=== PATIENT | female | born 1955 ===

== ENCOUNTER 2016-09-17 19:55 | Inpatient (IN) | payer OTHER ==
[2016-09-17 20:35] VITALS: BMI 47.7
[2016-09-17] MEDS ORDERED: Albuterol-Ipratrop 3 mg / 0.5 (3 ml) UD IH PRN (22:00)
[2016-09-17] MEDS ORDERED: Insulin Detemir 100 units/ml Vial (Levemir) SC SCH (22:00)
[2016-09-17] MEDS ORDERED: Insulin Lispro (HUMAlog) HIGH Coverage SC SCH (22:15)
[2016-09-17] MEDS ORDERED: metroNIDAZOLE IV 500 mg/100 ml 100 ML IVPB SCH (22:32)
[2016-09-17] MEDS: Insulin Reg-MEDIUM-Coverage SC SCH (22:48)
[2016-09-17] MEDS: Insulin Detemir 100 units/ml Vial (Levemir) SC SCH (23:12)
[2016-09-17] MEDS ORDERED: Albuterol-Ipratrop 3 mg / 0.5 (3 ml) UD IH SCH (23:30)
[2016-09-18] MEDS ORDERED: metroNIDAZOLE IV 500 mg/100 ml 100 ML IVPB SCH (06:00)
[2016-09-18] MEDS: cefTRIAXone 1 gm 100 ML IVPB SCH (06:02)
[2016-09-18] MEDS: Levothyroxine 75 MCG TAB PO SCH (06:09)
[2016-09-18] MEDS: Pantoprazole 40 mg EC Tab PO SCH (06:09)
[2016-09-18] MEDS: Insulin Lispro 1 UNITS/0.01 ML SC SCH ×3 (06:45→17:33)
[2016-09-18] MEDS: Insulin Reg-MEDIUM-Coverage SC SCH ×4 (06:46→22:15)
[2016-09-18] MEDS ORDERED: Levothyroxine 75 MCG TAB PO SCH (07:30)
[2016-09-18] MEDS ORDERED: Albuterol-Ipratrop 3 mg / 0.5 (3 ml) UD IH PRN (07:56)
[2016-09-18 09:17] LABS: ADD MANUAL DIFF? NO
[2016-09-18] MEDS: MethylPREDNISolone 40 mg Vial IVP SCH (09:33)
[2016-09-18 09:42] LABS: ALKALINE PHOSPHATASE 132 U/L (38-133); ALT/SGPT 44 U/L (7-56); AST/SGOT 41 U/L (15-39); BILIRUBIN,TOTAL 0.6 mg/dL (0.2-1.3); BLOOD UREA NITROGEN 13 mg/dL (7-21); CALCIUM 10.5 mg/dL (8.4-10.5); CARBON DIOXIDE 28 mmol/L (21-33); CHLORIDE 101 mmol/L (98-107); GFR AFRICAN-AMERICAN > 60; GLUCOSE,RANDOM 86 mg/dL (70-110); POTASSIUM 4.5 mmol/L (3.6-5.0); SODIUM 138 mmol/L (132-148); TOTAL PROTEIN 6.8 g/dL (5.8-8.3)
[2016-09-18] MEDS ORDERED: cefTRIAXone 1 gm 100 ML IVPB SCH (10:00)
[2016-09-18 10:16] LABS: BASO # 0.02 K/mm3 (0.0-2.0); BASO % 0.2 % (0.0-3.0); EOS % 0.2 % (1.5-5.0); GRAN # 9.07 (1.4-6.5); GRAN % 73.1 % (50.0-68.0); HEMATOCRIT 35.8 % (36.0-48.0); LYMPH # 1.1 (1.2-3.4); LYMPH % 9.1 % (22.0-35.0); MEAN CELL VOLUME 91.6 fL (80.0-105.0); MEAN CORPUSCULAR HEMOGLOBIN 29.2 pg (25.0-35.0); MEAN CORPUSCULAR HGB CONC 31.8 g/dl (31.0-37.0); MONO # 2.2 (0.1-0.6); MONO % 17.4 % (1.0-6.0); PLATELET COUNT 215 10^3/uL (120.0-450.0); RED CELL DISTRIBUTION WIDTH 14.5 % (11.5-14.5); WHITE BLOOD COUNT 12.4 10^3/ul (4.5-11.0)
[2016-09-18] MEDS: Magnesium Oxide 400 mg Tab UD PO SCH ×2 (10:19→17:34)
[2016-09-18] MEDS: Albuterol-Ipratrop 3 mg / 0.5 (3 ml) UD IH SCH ×4 (11:03→23:00)
[2016-09-18] MEDS: Insulin Detemir 100 units/ml Vial (Levemir) SC SCH ×2 (11:31→22:16)
--- NOTE | 2016-09-18 12:21 | PN ---
DATE: 09/18/2016 The patient was seen and examined at bedside. She is receiving aerosol treatment with DuoNeb. At the present time, she is in 40 mg of Solu-Medrol. She is also on Rocephin intravenously. Pt with shortness of breath and some cough noted. PHYSICAL EXAMINATION: HEAD, EARS, NOSE, AND THROAT: Within normal limits. NECK: Supple with no jugular vein distention. CHEST: Symmetrical. HEART: S1, S2. No S3. Regular. LUNGS: Diminished breath sounds at both lung bases. Few scattered rhonchi. No wheezing. EXTREMITIES: No edema. SKIN: No rashes. Dry; intact. She is status post renal transplant. The rest of current situation is described above. Imaging studies were reviewed by me. CT of the abdomen and pelvis, no evidence of significant pathology. She is status post living donor renal transplant. I had an opportunity to evaluate her chest x-ray. This did not reveal any acute pathology. There is no infiltrate, effusions, except for unclear atelectatic opacity in the right lung base. I reviewed her CT scan of abdomen and pelvis which should give us an opportunity to further evaluate the changes at the right lung base. There is no significant infiltrate or effusion at the right base. There is some crowding of the blood vessels at the left lung base, but not enough to call it a pneumonia. There are a few chronic changes at both lung bases. ASSESSMENT: No evidence of acute pneumonia by CT, which I evaluated the right basal abnormality that was present on chest x-ray. Agree with current choice of antibiotics, steroids, and aerosol. We will follow on a p.r.n. basis. The patient was seen by infectious disease regulatory affairs consultant, Dr. Mendoza. He suspected pyelonephritis and severe sepsis. He started her on meropenem. Influenza is also in the differential, so he started Tamiflu and doxycycline as well. The antibiotics will continue to be adjusted and administered by infectious disease service. Clayton Lyman MD cc: [id number] TT: 09/18/2016 12:20:59 Confirmation # [id number] Dictation # [id number] ln MTDD
--- NOTE | 2016-09-18 15:50 | HP ---
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 The patient was admitted to the telemetry negrete for management of UTI with sepsis and a questionable right lower lobe pneumonia. She was started on cefepime and Flagyl with initial improvement in her symptoms and was subsequently ogden sferred to the TCU for completion of a 10-14 day course of antibiotics as per infection disease recom mendations. This morning, the patient states she feels weak and endorses some difficulty breathing a nd also complains of chills and rigors; however, she does state that her diarrhea has improved and th at she is tolerating p.o. intake. PAST MEDICAL HISTORY: As per HPI. PAST SURGICAL HISTORY: As per HPI, also colonic resection for prior diverticulitis, appendectomy and hysterectomy. ALLERGIES: No known drug allergies. MEDICATIONS: Zetia 10 mg p.o. daily, prednisone 5 mg p.o. daily, Synthroid 75 mcg p.o. daily, Proton ix 40 mg p.o. daily, losartan 100 mg p.o. daily, Levemir 50 units SC q.12, Humalog 20 units SC with m eals, CellCept 250 mg p.o. t.i.d., tacrolimus 1 mg p.o. b.i.d., Bactrim DS 1 tab p.o. Tuesday, and Tuesday. FAMILY HISTORY: Noncontributory. SOCIAL HISTORY: The patient denies any toxic habits. REVIEW OF SYSTEMS: A 14 point review of systems is negative except as per HPI. PHYSICAL EXAMINATION: VITAL SIGNS: Temperature 101.8, pulse 75, blood pressure 151/54, respiratory rate 20, oxygen saturat ion 96% on 2 liters nasal cannula. GENERAL: Morbidly obese woman sitting up in her chair in no apparent distress. HEENT: PERRL. EOMI. No scleral icterus, no conjunctival pallor. NECK: No JVD, no bruits. LUNGS: Distant breath sounds with decreased breath sounds at the bases, otherwise clear. CARDIOVASCULAR: Regular rate and rhythm. Normal S1 and S2. ABDOMEN: Obese, normoactive bowel sounds, soft, nontender, nondistended. EXTREMITIES: Trace lower extremity edema bilaterally. NEUROLOGIC: Awake, alert and oriented x 3. No focal motor deficits. LABORATORY DATA: Morning labs are pending. ASSESSMENT: The patient is a 60-year-old woman with multiple medical comorbidities who presented to [facility] for evaluation of a 3-week history of daily diarrhea and who was admitted to [facility] telemetry negrete for continued management of urinary tract infection with sepsis. PLAN: 1. Urinary tract infection with sepsis. Input from Dr. Oakley of infectious disease noted and apprec iated. The patient remains on ceftriaxone 1 gram IV daily. 2. Chronic diarrhea. Consider secondary to Clostridium difficile given the patient's profound leuko cytosis on admission. The patient was previously on Flagyl 500 mg IV q.8 with resolution of her leuk ocytosis and significant improvement in her diarrhea. Will continue to monitor off of Flagyl. 3. Hypertension. Blood pressure controlled. Continue with losartan 100 mg p.o. daily. 4. Hyperlipidemia. Continue with Zetia 10 mg p.o. daily. 5. Hypothyroidism. Continue with Synthroid 75 mcg p.o. daily. 6. Insulin-dependent diabetes mellitus with diabetic neuropathy. Continue with Levemir 50 units SC q.12 hours and Humalog 18 units SC with meals. Continue with medium dose insulin sliding scale. Leobardo l continue to monitor fingersticks before meals and at bedtime and adjust as needed. 7. Questionable right lower lobe pneumonia. Admission chest x-ray demonstrates a minimal patchy inf iltrate to the right lower lobe. Will start DuoNebs and continue with Solu-Medrol 40 mg IV daily. W ill consult Dr. Kirby from pulmonary and critical care medicine. 8. 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 Input from Dr. Doug murphy is noted and appreciated. Continue with CellCept 250 mg p.o. b.i.d. and Tacrolimus 1 mg p.o . b.i.d. 9. Prophylaxis. Continue with Protonix for GI prophylaxis and heparin for DVT prophylaxis. CODE STATUS: Full code. Dane Downing MD cc: [id number] TT: 09/18/2016 15:49:58 dn
--- NOTE | 2016-09-18 15:56 | CON ---
DATE: 09/18/2016 The patient seen in room 304. CHIEF COMPLAINT: Weakness times several days. HISTORY OF PRESENT ILLNESS: This is a 60-year-old female with a history of right kidney transplant a pproximately 7 years ago, history of diverticulitis, had a history of a partial colectomy, history of morbid obesity with a body mass index of 45, diabetes mellitus, hypertension, hypothyroidism and dys lipidemia was brought to the hospital in acute care after an episode of falling and weakness, but no fevers or vomiting. No chest pain, no shortness of breath. The patient had an extensive workup in [facility] acute care side and was now transferred to the transitional care with diagnosis of severe sepsis a nd urinary tract infection, status post renal transplant approximately 7 years ago. Currently the pa solitario was started on antibiotic, which was ceftriaxone and transferred to transitional care. PAST MEDICAL HISTORY: Significant for right kidney transplant 7 years ago, diverticulitis, morbid ob esity with body mass index of 45, hypertension, diabetes, hypothyroidism, dyslipidemia. PAST SURGICAL HISTORY: Significant for partial colectomy. ALLERGIES: The patient has no known allergies. MEDICATIONS: Reviewed. PHYSICAL EXAMINATION: VITAL SIGNS: Temperature is 98, T-max is 101.8. Blood pressure is 151/50, respiratory rate of 22. HEENT: Unremarkable. NECK: Supple. LUNGS: Decreased breath sounds. HEART: S1, S2. ABDOMEN: Soft, nontender, no organomegaly, no rebound. LABORATORY DATA: Reveals a white count of 13,900 and a ____ of 12 and platelets of 204, BUN of 15, c reatinine of 0.6. The patient had a procalcitonin of 2.42. Urinalysis revealed the patient had too numerous to count WBCs, many bacteria. Review of the blood culture is no growth x 3 days. Repeat ur ine cultures no growth, initial urine cultures had E. coli sensitive to ceftriaxone and resistant to Cipro, resistant to Bactrim. ASSESSMENT AND PLAN: A 60-year-old female with severe sepsis with Escherichia coli urinary tract inf ection, history of renal transplant and sensitive to ceftriaxone, currently on ceftriaxone with hist ory of diverticulitis, status post partial colectomy, morbid obesity with body mass index of 45, hype rtension, diabetes, dyslipidemia, hypothyroidism, day #4 of ceftriaxone with a fever. The patient di d have a CAT scan of the abdomen and pelvis. We will repeat blood cultures and urine cultures and ch est x-ray and procalcitonin. We will make further recommendations. Will follow closely with you. Nilson Mendoza MD cc: [id number] TT: 09/18/2016 15:55:30 Confirmation # [id number] Dictation # [id number] jn
[2016-09-19] MEDS ORDERED: Insulin Regular 1 UNITS/0.01 ML ML SC STA ×2 (00:41→01:38)
[2016-09-19] MEDS: Albuterol-Ipratrop 3 mg / 0.5 (3 ml) UD IH SCH ×6 (04:15→23:09)
[2016-09-19] MEDS: cefTRIAXone 1 gm 100 ML IVPB SCH (05:43)
[2016-09-19] MEDS: Pantoprazole 40 mg EC Tab PO SCH (05:43)
[2016-09-19] MEDS: Levothyroxine 75 MCG TAB PO SCH (05:43)
[2016-09-19] MEDS: Insulin Lispro 1 UNITS/0.01 ML SC SCH ×3 (07:21→17:40)
[2016-09-19] MEDS: Insulin Reg-MEDIUM-Coverage SC SCH ×4 (07:21→22:36)
[2016-09-19] MEDS: Magnesium Oxide 400 mg Tab UD PO SCH ×2 (09:06→17:43)
[2016-09-19] MEDS: Insulin Detemir 100 units/ml Vial (Levemir) SC SCH ×2 (09:07→22:28)
[2016-09-19 09:38] LABS: ADD MANUAL DIFF? NO
[2016-09-19 09:49] LABS: ALB/GLOB RATIO 0.9 (1.1-1.8); ALKALINE PHOSPHATASE 146 U/L (38-133); ALT/SGPT 47 U/L (7-56); AST/SGOT 30 U/L (15-39); BILIRUBIN,TOTAL 0.4 mg/dL (0.2-1.3); BLOOD UREA NITROGEN 18 mg/dL (7-21); CALCIUM 10.9 mg/dL (8.4-10.5); CARBON DIOXIDE 29 mmol/L (21-33); CHLORIDE 99 mmol/L (98-107); GFR AFRICAN-AMERICAN > 60; GLUCOSE,RANDOM 266 mg/dL (70-110); POTASSIUM 4.2 mmol/L (3.6-5.0); SODIUM 138 mmol/L (132-148)
[2016-09-19] MEDS: MethylPREDNISolone 40 mg Vial IVP SCH (10:03)
[2016-09-19 11:29] LABS: BASO # 0.02 K/mm3 (0.0-2.0); BASO % 0.2 % (0.0-3.0); EOS % 0.4 % (1.5-5.0); GRAN # 7.76 (1.4-6.5); GRAN % 74.2 % (50.0-68.0); HEMATOCRIT 35.9 % (36.0-48.0); LYMPH # 1.6 (1.2-3.4); LYMPH % 15.3 % (22.0-35.0); MEAN CELL VOLUME 91.1 fL (80.0-105.0); MEAN CORPUSCULAR HEMOGLOBIN 28.7 pg (25.0-35.0); MEAN CORPUSCULAR HGB CONC 31.5 g/dl (31.0-37.0); MEAN PLATELET VOLUME 11.5 fl (7.0-11.0); MONO % 9.9 % (1.0-6.0); PLATELET COUNT 250 10^3/uL (120.0-450.0); RED CELL DISTRIBUTION WIDTH 14.2 % (11.5-14.5); WHITE BLOOD COUNT 10.5 10^3/ul (4.5-11.0)
--- NOTE | 2016-09-19 12:21 | PN ---
DATE: 09/19/2016 PULMONARY PROGRESS NOTE The patient was seen and examined at bedside. She states she feels better. She has less chest pain with cough. However, she is still coughing and bringing up white and yellowish sputum. PHYSICAL EXAMINATION: VITAL SIGNS: Temperature 97.8, pulse 88, respirations 20, pulse oximetry 96% on nasal cannula. Blood pressure is 153/64. HEAD, EARS, NOSE, AND THROAT: Within normal limits. NECK: Supple with no jugular vein distention. CHEST: Symmetrical. HEART: S1, S2. No S3, regular. LUNGS: Few coarse rhonchi. No wheezing. GASTROINTESTINAL: Soft, nontender with no organomegaly. EXTREMITIES: 1+ pedal edema. SKIN: Clear with no skin rashes. NEUROLOGIC: No focal deficits. ASSESSMENT: 1. Sepsis syndrome. 2. To rule out influenza. 3. Possible influenza 4. Urinary tract infection PLAN: Clear chest x-ray except for small atelectatic area at the right lung base. However, on CT scan of abdomen, there is no significant infiltrate or effusion at the right base. There is no evidence of pneumonia. The patient is being treated for both possible influenza and urinary tract infection. Antibiotics and Tamiflu are being administered by Dr. Bowser Clayton Lyman MD cc: [id number] TT: 09/19/2016 12:20:35 Confirmation # [id number] Dictation # [id number] jn MTDD
--- NOTE | 2016-09-19 12:49 | PN ---
DATE: 09/19/2016 SUBJECTIVE: The patient seen and examined at bedside on the TCU. No acute events overnight. She re naga afebrile and hemodynamically stable. This morning, the patient endorses significant improvemen t in her respiratory status since initiation of bronchodilators and IV steroids. She continues to de ny any diarrhea or abdominal pain and overall, she states she feels better. OBJECTIVE: VITAL SIGNS: TM 98.9, TC 97.8, pulse 87, blood pressure 153/64, respiratory rate 20, oxygen saturati on 96% on 2 liters nasal cannula. GENERAL: Morbidly obese woman, sitting up in her chair, in no apparent distress. HEENT: PERRL, EOMI. No scleral icterus, no conjunctival pallor. NECK: No JVD, no bruits. LUNGS: Distant breath sounds with decreased breath sounds at the bases. CARDIOVASCULAR: Regular rate and rhythm. Normal S1 and S2. ABDOMEN: Normoactive bowel sounds, soft, nontender, nondistended. EXTREMITIES: Trace lower extremity edema bilaterally. NEUROLOGIC: Awake, alert and oriented x 3. No focal motor deficits. LABORATORY DATA: Morning labs are pending. ASSESSMENT: The patient is a 60-year-old woman with multiple medical comorbidities who presented to [facility] for evaluation of a 3-week history of malaise and who was admitted to the tele metry negrete for management of urinary tract infection with sepsis and who was subsequently transferred to the TCU for continued IV antibiotics. PLAN: 1. Urinary tract infection with sepsis. Input from Dr. Oakley and Dr. Mendoza of infectious disea se noted and appreciated. The patient remains on ceftriaxone 1 gram IV daily. 2. Chronic diarrhea, resolved. Consider etiology secondary to Clostridium difficile. The patient r eports resolution of her diarrhea status post course of Flagyl. 3. Hypertension. Blood pressure controlled. Continue with losartan 100 mg p.o. daily. 4. Hyperlipidemia. Continue with Zetia 10 mg p.o. daily. 5. Hypothyroidism. Continue with Synthroid 75 mcg p.o. daily. 6. Insulin-dependent diabetes mellitus with diabetic neuropathy. Fingersticks noted to be elevated over the previous 24 hours and this is likely secondary to IV steroid administration. Continue with Levemir 50 units subQ q. 12 hours and Humalog 18 units subQ with meals. Continue with medium dose in sulin sliding scale. We will likely discontinue IV steroids over the following 24 hours given the pa solitario's significant improvement in her respiratory symptoms, which should improve patient's glycemic control. 7. Questionable right lower lobe pneumonia. Input from Dr. Lyman noted and appreciated. Continue w ith bronchodilators and IV steroids. 8. History of living renal transplant, secondary to fibrillary glomerulonephritis. Input from Dr. Laya crockett noted and appreciated. Continue with CellCept 250 mg p.o. b.i.d. and tacrolimus 1 mg p.o. b.i.d. 9. Prophylaxis. Continue with Protonix for gastrointestinal prophylaxis and heparin for deep venous thrombosis prophylaxis. CODE STATUS: Full code. Dane Downing MD cc: [id number] TT: 09/19/2016 12:48:59 Confirmation # [id number] Dictation # [id number] en
--- NOTE | 2016-09-19 19:49 | PN ---
DATE: 09/19/2016 SUBJECTIVE: The patient seen earlier today in room 304. The patient is in bed in no acute distress. The patient's temperature is on a downward trend. This morning, she was comfortable. PHYSICAL EXAMINATION: VITAL SIGNS: Temperature is 97. The last temperature she had was on 09/17. It was at 101.8. Blood pressure is 130/70, respiratory rate of 20. HEENT: Unremarkable. NECK: Supple. LUNGS: Decreased breath sounds. HEART: Normal S1, S2. ABDOMEN: Soft, nontender. LABORATORY DATA: Reveals a white count of 10,000; hemoglobin of 11, platelets of 258. Chemistries r eveal a BUN of 18, creatinine of 0.8. Microbiology is noted and Dr. Dane Downing's note is revie tue. ASSESSMENT AND PLAN: A 60-year-old female with severe sepsis with Escherichia coli urinary tract inf ection, history of renal transplant. The Escherichia coli is sensitive to ceftriaxone. The patient also with a history of diverticulitis, status post partial colectomy, morbid obesity with a body mass index of 45, hypertension, diabetes mellitus, dyslipidemia, hypothyroidism, day #5 of ceftriaxone. We will continue to treat with present therapy. The patient appears to be improving. Review of the orders confirms the patient to be on ceftriaxone. Nilson Mendoza MD cc: [id number] TT: 09/19/2016 19:48:49 Confirmation # [id number] Dictation # [id number] sn
[2016-09-20] MEDS: Albuterol-Ipratrop 3 mg / 0.5 (3 ml) UD IH SCH ×6 (04:53→23:15)
[2016-09-20] MEDS: cefTRIAXone 1 gm 100 ML IVPB SCH (05:12)
[2016-09-20] MEDS: Pantoprazole 40 mg EC Tab PO SCH (05:35)
[2016-09-20] MEDS: Levothyroxine 75 MCG TAB PO SCH (05:35)
[2016-09-20 06:14] LABS: ADD MANUAL DIFF? NO
[2016-09-20] MEDS: Insulin Reg-MEDIUM-Coverage SC SCH ×4 (06:48→22:50)
[2016-09-20 06:49] LABS: ALKALINE PHOSPHATASE 153 U/L (38-133); ALT/SGPT 45 U/L (7-56); AST/SGOT 30 U/L (15-39); BILIRUBIN,TOTAL 0.3 mg/dL (0.2-1.3); BLOOD UREA NITROGEN 26 mg/dL (7-21); CALCIUM 11.4 mg/dL (8.4-10.5); CARBON DIOXIDE 32 mmol/L (21-33); CHLORIDE 94 mmol/L (95-110); GFR AFRICAN-AMERICAN > 60; GLUCOSE,RANDOM 291 mg/dL (70-110); POTASSIUM 4.5 mmol/L (3.6-5.0); SODIUM 137 mmol/L (132-148); TOTAL PROTEIN 7.1 g/dL (5.8-8.3)
[2016-09-20 06:54] LABS: BASO # 0.02 K/mm3 (0.0-2.0); BASO % 0.2 % (0.0-3.0); EOS # 0.1 (0.0-0.7); EOS % 0.5 % (1.5-5.0); GRAN # 9.53 (1.4-6.5); GRAN % 74.6 % (50.0-68.0); HEMATOCRIT 37.2 % (36.0-48.0); LYMPH % 15.7 % (22.0-35.0); MEAN CELL VOLUME 90.7 fL (80.0-105.0); MEAN CORPUSCULAR HEMOGLOBIN 28.5 pg (25.0-35.0); MEAN CORPUSCULAR HGB CONC 31.5 g/dl (31.0-37.0); MONO # 1.2 (0.1-0.6); PLATELET COUNT 305 10^3/uL (120.0-450.0); RED CELL DISTRIBUTION WIDTH 14.1 % (11.5-14.5); WHITE BLOOD COUNT 12.8 10^3/ul (4.5-11.0)
--- NOTE | 2016-09-20 08:41 | PN ---
DATE: 09/20/2016 SUBJECTIVE: The patient appears very comfortable at rest. She is not short of breath. PHYSICAL EXAMINATION: VITAL SIGNS: Temperature is 97.9, pulse 80, respirations 18, blood pressure 151 /76. Oxygen saturation on nasal cannula is 96%. HEENT: Normocephalic, atraumatic. No JVD. CARDIOVASCULAR: Positive S1, S2. No S3. LUNGS: Decreased breath sounds at the bases. Very minimal rhonchi. No wheezing. EXTREMITIES: Positive for mild edema. No cyanosis. No clubbing. Calves are nontender to palpation. GASTROINTESTINAL: Abdomen is soft, nontender, nondistended. Bowel sounds are positive. SKIN: No acute rash. NEUROLOGIC: Limited at the present time. IMPRESSION: 1. Acute bronchitis. 2. Mild bronchospasm. 3. Sepsis syndrome. 4. Urinary tract infection. PLAN: The patient appears very comfortable this morning. She is not short of breath at rest. She states she is feeling much better overall. On physical exam, only minimal bronchospasm is noted. In addition, there is no significant alveolar arterial gradient. I will continue with the current nebulizer treatments and low-dose intravenous steroids for now. I would continue with the antibiotic coverage as per infectious disease. Input by Dr. Mendoza is noted. Temperatures have fully resolved. The patient appears significantly improved overall - compared to the initial status. She is advised to increase her activity as tolerated. I will discuss the above with Dr. Downing. Jermain Kirby MD cc: [phone] TT: 09/20/2016 08:41:14 Confirmation # [id number] Dictation # [id number] bette QUESADA
--- NOTE | 2016-09-20 08:54 | PN ---
DATE: 09/20/2016 SUBJECTIVE: The patient is seen and examined at bedside in the TCU. No acute events overnight. She remains afebrile and hemodynamically stable, and this morning, continues to endorse improvement in h er clinical status. She states she feels well and states her respiratory symptoms are improving, and otherwise offers no complaints. OBJECTIVE: VITAL SIGNS: Temperature 98.4, pulse 80, blood pressure 135/76, respiratory rate 20, oxygen saturati on 96% on 2 liters nasal cannula. GENERAL: Morbidly obese woman lying in bed in no apparent distress. HEENT: PERRL. EOMI. No scleral icterus. No conjunctival pallor. NECK: No JVD, no bruits. LUNGS: Distant breath sounds with decreased breath sounds at the bases. CARDIOVASCULAR: Regular rate and rhythm. Normal S1 and S2. ABDOMEN: Normoactive bowel sounds, soft, nontender, nondistended. EXTREMITIES: Trace lower extremity edema bilaterally. NEUROLOGIC: Awake, alert, and oriented x 3. No focal motor deficits. LABORATORY DATA: WBC 12.8 with 75% neutrophils, hemoglobin 12, hematocrit 37, platelets 305. Chemis try reviewed and unremarkable. ASSESSMENT: The patient is a 60-year-old woman with multiple medical comorbidities who presented to [facility] for evaluation of a 3-week history of malaise and was admitted to the telemetr y negrete for management of urinary tract infection with sepsis, and subsequently, transferred to the ansitional care unit for continued IV antibiotics. PLAN: 1. Urinary tract infection with sepsis. Input from Dr. Oakley and Dr. Mendoza of infectious diseunity hospital is noted and appreciated. The patient remains on ceftriaxone 1 gram IV daily and is scheduled to complete a 10-14 day course. Today is day #6 of antibiotics. 2. Chronic diarrhea, resolved. 3. Hypertension. Blood pressure controlled. Continue with losartan 100 mg p.o. daily. 4. Hyperlipidemia. Continue with Zetia 10 mg p.o. daily. 5. Hypothyroidism. Continue with Synthroid 75 mcg p.o. daily. 6. Insulin-dependent diabetes mellitus with diabetic neuropathy. Fingersticks are noted to be eleva guerita, which is likely secondary to steroid administration. We will discontinue IV steroids. Continue with Levemir 50 units subcutaneously q. 12. We will increase Humalog to 20 units subcutaneously q. a.c. Continue to monitor fingersticks and adjust insulin regimen as needed. 7. Questionable right lower lobe pneumonia. Input from Dr. Lyman noted and appreciated. Continue w ith bronchodilators. As above, we will discontinue IV steroids. 8. 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 Input from Dr. Doug murphy is noted and appreciated. Continue with CellCept 250 mg p.o. b.i.d. and tacrolimus 1 mg p.o . b.i.d. 9. Prophylaxis. Continue Protonix for GI prophylaxis and heparin for DVT prophylaxis. CODE STATUS: Full code. Dane Downing MD cc: [id number] TT: 09/20/2016 08:54:28 Confirmation # [id number] Dictation # [id number] jn
[2016-09-20] MEDS: Magnesium Oxide 400 mg Tab UD PO SCH ×2 (10:53→18:29)
[2016-09-20] MEDS: Insulin Detemir 100 units/ml Vial (Levemir) SC SCH ×2 (10:55→22:51)
[2016-09-20] MEDS: Insulin Lispro 1 UNITS/0.01 ML SC SCH ×2 (12:30→18:32)
--- NOTE | 2016-09-20 16:34 | CP.PCM.PN ---
Subjective - Date & Time of Evaluation Date of Evaluation: 09/20/16 Time of Evaluation: 11:35 - Subjective Subjective: Comfortable in bed, not in distress, no fevers. Objective - Vital Signs/Intake and Output Vital Signs (last 24 hours): Temp Pulse Resp BP Pulse Ox 97.9 F 80 16 151/76 H 96 09/19/16 14:00 09/19/16 14:00 09/19/16 14:00 09/19/16 14:00 09/19/16 10:00 - Medications Medications: Current Medications Acetaminophen (Tylenol 325mg Tab) 650 mg PO Q4H PRN PRN Reason: Fever >100.4 F Last Admin: 09/18/16 14:25 Dose: 650 mg Albuterol/Ipratropium (Duoneb 3 Mg/0.5 Mg (3 Ml) Ud) 3 ml IH Q2H PRN PRN Reason: Shortness of Breath Albuterol/Ipratropium (Duoneb 3 Mg/0.5 Mg (3 Ml) Ud) 3 ml IH [id number] [facility] Last Admin: 09/20/16 07:13 Dose: 3 ml Ezetimibe (Zetia) 10 mg PO DAILY [facility] Last Admin: 09/19/16 09:07 Dose: 10 mg Heparin Sodium (Porcine) (Heparin) 5,000 units SC Q8 [facility] PRN Reason: Protocol Last Admin: 09/20/16 05:09 Dose: 5,000 units Ceftriaxone Sodium (Rocephin 1 Gram Ivpb) 100 mls @ 100 mls/hr IVPB 0600 [facility] PRN Reason: Protocol Stop: 09/25/16 06:01 Last Admin: 09/20/16 05:12 Dose: 100 mls/hr Insulin Detemir (Levemir) 50 unit SC Q12 [facility] Last Admin: 09/19/16 22:28 Dose: 50 unit Insulin Human Lispro (Humalog) 20 units SC AC TRIPP Insulin Human Regular (Humulin R Med) 0 units SC ACHS [facility] PRN Reason: Protocol Last Admin: 09/20/16 06:48 Dose: 5 units Levothyroxine Sodium (Synthroid) 75 mcg PO 0630 [facility] Last Admin: 09/20/16 05:35 Dose: 75 mcg Losartan Potassium (Cozaar) 100 mg PO DAILY [facility] Last Admin: 09/20/16 08:00 Dose: 100 mg Magnesium Oxide (Mag-Ox) 400 mg PO BID [facility] Last Admin: 09/19/16 17:43 Dose: 400 mg Mycophenolate Mofetil (Cellcept Cap) 250 mg PO BID [facility] Last Admin: 09/19/16 17:33 Dose: 250 mg Ondansetron HCl (Zofran Inj) 4 mg IVP Q4H PRN PRN Reason: Nausea/Vomiting Pantoprazole Sodium (Protonix Ec Tab) 40 mg PO 0630 [facility] Last Admin: 09/20/16 05:35 Dose: 40 mg Tacrolimus (Prograf Cap) 1 mg PO Q12 [facility] Last Admin: 09/19/16 21:21 Dose: 1 mg Zolpidem Tartrate (Ambien) 5 mg PO HS PRN; Protocol PRN Reason: Insomnia Last Admin: 09/19/16 22:36 Dose: 5 mg - Labs Labs: 09/20/16 06:00 09/20/16 06:00 - Constitutional Appears: Non-toxic, No Acute Distress - Head Exam Head Exam: NORMAL INSPECTION - Respiratory Exam Respiratory Exam: Decreased Breath Sounds - Cardiovascular Exam Cardiovascular Exam: +S1, +S2 - GI/Abdominal Exam GI & Abdominal Exam: Soft. absent: Tenderness Assessment and Plan - Assessment and Plan (Free Text) Plan: Assessment severe sepsis secondary to upper urinary tract infection in this patient S/P right renal transplant presenting with generalized weakness and syncopal episodes, clinically improving, growing E. coli resistant to Cipro and Bactrim, sensitive to Rocephin right kidney transplant (about 7 years ago) history of diverticulitis S/P partial colectomy morbid obesity with BMI 45 HTN DM dyslipidemia hypothyroidism Plan continue Rocephin (total day 6 of antibiotics) - would recommend 10-14 days of antibiotics Will continue to follow clinically
[2016-09-21] MEDS: Albuterol-Ipratrop 3 mg / 0.5 (3 ml) UD IH SCH ×5 (04:19→19:53)
[2016-09-21] MEDS: Levothyroxine 75 MCG TAB PO SCH (06:07)
[2016-09-21] MEDS: Pantoprazole 40 mg EC Tab PO SCH (06:08)
[2016-09-21] MEDS: cefTRIAXone 1 gm 100 ML IVPB SCH (06:08)
[2016-09-21] MEDS: Insulin Lispro 1 UNITS/0.01 ML SC SCH ×3 (06:32→17:44)
[2016-09-21] MEDS: Insulin Reg-MEDIUM-Coverage SC SCH ×4 (06:33→21:36)
[2016-09-21 09:41] LABS: ADD MANUAL DIFF? NO
[2016-09-21 09:45] LABS: BASO # 0.09 K/mm3 (0.0-2.0); BASO % 0.7 % (0.0-3.0); EOS # 0.2 (0.0-0.7); EOS % 1.5 % (1.5-5.0); GRAN # 9.35 (1.4-6.5); GRAN % 70.7 % (50.0-68.0); HEMATOCRIT 43.9 % (36.0-48.0); LYMPH # 2.3 (1.2-3.4); LYMPH % 17.6 % (22.0-35.0); MEAN CELL VOLUME 90.3 fL (80.0-105.0); MEAN CORPUSCULAR HEMOGLOBIN 29.2 pg (25.0-35.0); MEAN CORPUSCULAR HGB CONC 32.3 g/dl (31.0-37.0); MONO # 1.3 (0.1-0.6); MONO % 9.5 % (1.0-6.0); PLATELET COUNT 385 10^3/uL (120.0-450.0); RED CELL DISTRIBUTION WIDTH 14.3 % (11.5-14.5); WHITE BLOOD COUNT 13.2 10^3/ul (4.5-11.0)
[2016-09-21 09:52] LABS: ALKALINE PHOSPHATASE 167 U/L (38-133); ALT/SGPT 59 U/L (7-56); AST/SGOT 43 U/L (15-39); BILIRUBIN,TOTAL 0.4 mg/dL (0.2-1.3); BLOOD UREA NITROGEN 24 mg/dL (7-21); CALCIUM 11.3 mg/dL (8.4-10.5); CARBON DIOXIDE 33 mmol/L (21-33); CHLORIDE 92 mmol/L (95-110); GFR AFRICAN-AMERICAN > 60; GLUCOSE,RANDOM 266 mg/dL (70-110); SODIUM 135 mmol/L (132-148); TOTAL PROTEIN 7.7 g/dL (5.8-8.3)
[2016-09-21] MEDS: Magnesium Oxide 400 mg Tab UD PO SCH ×2 (10:20→17:48)
[2016-09-21] MEDS: Insulin Detemir 100 units/ml Vial (Levemir) SC SCH ×2 (10:29→21:46)
--- NOTE | 2016-09-21 10:29 | RAD ---
HISTORY: SOB, cough COMPARISON: 09/14/2016 FINDINGS: LUNGS: No active pulmonary disease. PLEURA: No significant pleural effusion identified, no pneumothorax apparent. CARDIOVASCULAR: Normal. OSSEOUS STRUCTURES: No significant abnormalities. VISUALIZED UPPER ABDOMEN: Normal. OTHER FINDINGS: None. IMPRESSION: No active disease.
--- NOTE | 2016-09-21 10:39 | PN ---
DATE: 09/20/2016 SUBJECTIVE: The patient was seen in the transitional care unit. She is complaining of a cough. She is quite edematous as well. She does not appear to be in any distress. There was no chest pain or shortness of breath. She reports that her dysuria has improved. She has no abdominal pain nor any d ysuria. OBJECTIVE: VITAL SIGNS: Blood pressure is 134/68, heart rate is 72, oral temperature is 98.5, respiratory rate is 18, oxygen saturation 96%. I's and O's are not strictly documented. The remainder of the exam is as follows. HEENT: The patient was normocephalic and atraumatic without any sinus tenderness. NECK: Supple with a full range of motion. Trachea midline and freely movable. Thyroid was nontende r nor was it enlarged. There was no jugular venous distention. Conjunctivae were neither pale nor i cteric. CHEST: Lungs sher had some faint rales at both bases. There was no wheezing or rhonchi. Diaphrag matic excursion as well as airflow through both lung sher was bilaterally symmetrical. CARDIAC: Regular rate and rhythm without any rubs or gallops. There were no heaves and the PMI was not displaced. ABDOMEN: Distended but nontender, without any rebounding, guarding or rigidity. There was no tender ness over her renal allograft. EXTREMITIES: Had 1+ dependent edema. There was no palpable cord. Dawna sign was negative. NEUROLOGIC: The patient was nonfocal. VASCULAR: Had no bruits. SKIN: Intact. GENITOURINARY: No tenderness over her allograft either. There is no suprapubic tenderness on exam. LABORATORY STUDIES: White count is 12.8, H and H is 11.7/37.2 with a platelet count of 305,000. The re are 75% neutrophils, 16% lymphocytes, 9% monocytes. Sodium is 137, potassium is 4.5, chloride 94, bicarbonate 32, BUN/creatinine is 26/0.4, calcium is 11.4, AST/ALT is 30/45, alkaline phosphatase is 153. There is no new microbiology report, nor is there any new imaging to report either. 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 She is currently receiving intravenous antibiotics in the transitional care unit. 1. The patient has been on intravenous fluids and remains volume overloaded. She is "Lasix na?ve" a nd so we will change her furosemide to 20 mg intravenously twice daily with strict in's and out's to ensure that she has a negative fluid balance. Additionally, the patient will have a 2 g sodium restr iction added to her diet. 2. Clinically she is volume overloaded with some rales on exam. I will order a chest x-ray on this p atient as well, but the furosemide should assist her. If she is not in negative fluid balance, then we will titrate the dose up. We can continue losartan for afterload reduction. 3. The patient is hypercalcemic and prior outpatient workup revealed that she has primary hyperparat hyroidism. Ideally, I would place her on 30 mg orally twice daily of Sensipar; however, she has been unable to tolerate it in the past and we will start her on 30 mg daily. 4. Since she is not bacteremic nor toxic in appearance, we will continue her transplant medications at the outpatient dose including CellCept 250 mg orally twice daily, tacrolimus 1 mg orally twice brian ly, prednisone 5 mg daily and Bactrim-DS 1 tablet orally every Tuesday, Tuesday, Tuesday. She does n ot require any stress dose steroids. 5. Infectious disease followup is appreciated. The patient is on day #6 of ceftriaxone and 10 -14 days. The above was discussed with the patient as well as her brother at bedside. Review of systems, past medical history, social history and family history were all reviewed and ther e are no new changes. Doron Casas MD cc: [phone] TT: 09/21/2016 10:38:21 Confirmation # [id number] Dictation # [id number] rn
--- NOTE | 2016-09-21 15:57 | CP.PCM.PN ---
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 Objective - Vital Signs/Intake and Output Vital Signs (last 24 hours): Temp Pulse Resp BP Pulse Ox 98.3 F 82 20 138/74 98 09/21/16 10:00 09/21/16 10:00 09/21/16 10:00 09/21/16 10:27 09/21/16 10:00 - Medications Medications: Current Medications Acetaminophen (Tylenol 325mg Tab) 650 mg PO Q4H PRN PRN Reason: Fever >100.4 F Last Admin: 09/21/16 10:14 Dose: 650 mg Albuterol/Ipratropium (Duoneb 3 Mg/0.5 Mg (3 Ml) Ud) 3 ml IH Q2H PRN PRN Reason: Shortness of Breath Albuterol/Ipratropium (Duoneb 3 Mg/0.5 Mg (3 Ml) Ud) 3 ml IH [id number] [facility] Last Admin: 09/21/16 10:59 Dose: 3 ml Cinacalcet (Sensipar) 30 mg PO DAILY [facility] Last Admin: 09/21/16 10:31 Dose: 30 mg Ezetimibe (Zetia) 10 mg PO DAILY [facility] Last Admin: 09/21/16 10:22 Dose: 10 mg Furosemide (Lasix) 20 mg IVP Q12 [facility] Last Admin: 09/21/16 10:27 Dose: 20 mg Heparin Sodium (Porcine) (Heparin) 5,000 units SC Q8 [facility] PRN Reason: Protocol Last Admin: 09/21/16 14:27 Dose: 5,000 units Ceftriaxone Sodium (Rocephin 1 Gram Ivpb) 100 mls @ 100 mls/hr IVPB 0600 [facility] PRN Reason: Protocol Stop: 09/25/16 06:01 Last Admin: 09/21/16 06:08 Dose: 100 mls/hr Insulin Detemir (Levemir) 50 unit SC Q12 [facility] Last Admin: 09/21/16 10:29 Dose: Not Given Insulin Human Lispro (Humalog) 20 units SC AC [facility] Last Admin: 09/21/16 12:34 Dose: 20 units Insulin Human Regular (Humulin R Med) 0 units SC ACHS [facility] PRN Reason: Protocol Last Admin: 09/21/16 12:35 Dose: 3 units Levothyroxine Sodium (Synthroid) 75 mcg PO 0630 [facility] Last Admin: 09/21/16 06:07 Dose: 75 mcg Losartan Potassium (Cozaar) 100 mg PO DAILY [facility] Last Admin: 09/21/16 10:18 Dose: 100 mg Magnesium Oxide (Mag-Ox) 400 mg PO BID [facility] Last Admin: 09/21/16 10:20 Dose: 400 mg Mycophenolate Mofetil (Cellcept Cap) 250 mg PO BID [facility] Last Admin: 09/21/16 10:18 Dose: 250 mg Ondansetron HCl (Zofran Inj) 4 mg IVP Q4H PRN PRN Reason: Nausea/Vomiting Pantoprazole Sodium (Protonix Ec Tab) 40 mg PO 0630 [facility] Last Admin: 09/21/16 06:08 Dose: 40 mg Prednisone (Prednisone Tab) 5 mg PO DAILY [facility] Last Admin: 09/21/16 10:30 Dose: 5 mg Tacrolimus (Prograf Cap) 1 mg PO Q12 [facility] Last Admin: 09/21/16 10:21 Dose: 1 mg Trimethoprim/Sulfamethoxazole (Bactrim Ds Tab) 1 tab PO MWF [facility] PRN Reason: Protocol Zolpidem Tartrate (Ambien) 5 mg PO HS PRN; Protocol PRN Reason: Insomnia Last Admin: 09/20/16 22:48 Dose: 5 mg - Labs Labs: 09/21/16 09:00 09/21/16 09:00 - Constitutional Appears: Non-toxic, No Acute Distress - Head Exam Head Exam: NORMAL INSPECTION - ENT Exam ENT Exam: Mucous Membranes Moist - Neck Exam Neck Exam: absent: Lymphadenopathy, Meningismus - Respiratory Exam Respiratory Exam: Decreased Breath Sounds - Cardiovascular Exam Cardiovascular Exam: +S1, +S2 - GI/Abdominal Exam GI & Abdominal Exam: Soft. absent: Tenderness Assessment and Plan - Assessment and Plan (Free Text) Plan: Assessment severe sepsis secondary to upper urinary tract infection in this patient S/P right renal transplant presenting with generalized weakness and syncopal episodes, clinically improving, growing E. coli resistant to Cipro and Bactrim, but sensitive to Rocephin right kidney transplant (about 7 years ago) history of diverticulitis S/P partial colectomy morbid obesity with BMI 45 HTN DM dyslipidemia hypothyroidism Plan continue Rocephin (total day 7 of antibiotics) - would recommend 10-14 days of antibiotics Will continue to follow clinically
[2016-09-22] MEDS: Albuterol-Ipratrop 3 mg / 0.5 (3 ml) UD IH SCH ×6 (03:45→20:11)
[2016-09-22] MEDS: Levothyroxine 75 MCG TAB PO SCH (05:40)
[2016-09-22] MEDS: Pantoprazole 40 mg EC Tab PO SCH (05:40)
[2016-09-22] MEDS: cefTRIAXone 1 gm 100 ML IVPB SCH (05:42)
[2016-09-22] MEDS: Insulin Reg-MEDIUM-Coverage SC SCH ×4 (06:50→21:40)
[2016-09-22] MEDS: Insulin Lispro 1 UNITS/0.01 ML SC SCH ×3 (06:52→16:50)
[2016-09-22 07:04] LABS: ADD MANUAL DIFF? NO
[2016-09-22 07:20] LABS: BASO # 0.06 K/mm3 (0.0-2.0); BASO % 0.5 % (0.0-3.0); EOS # 0.1 (0.0-0.7); EOS % 1.1 % (1.5-5.0); GRAN # 8.79 (1.4-6.5); GRAN % 67.7 % (50.0-68.0); HEMATOCRIT 44.3 % (36.0-48.0); LYMPH # 2.8 (1.2-3.4); LYMPH % 21.5 % (22.0-35.0); MEAN CELL VOLUME 91.3 fL (80.0-105.0); MEAN CORPUSCULAR HEMOGLOBIN 29.1 pg (25.0-35.0); MEAN CORPUSCULAR HGB CONC 31.8 g/dl (31.0-37.0); MEAN PLATELET VOLUME 10.8 fl (7.0-11.0); MONO # 1.2 (0.1-0.6); MONO % 9.2 % (1.0-6.0); PLATELET COUNT 417 10^3/uL (120.0-450.0); RED CELL DISTRIBUTION WIDTH 14.4 % (11.5-14.5)
[2016-09-22 07:28] LABS: ALKALINE PHOSPHATASE 143 U/L (38-133); ALT/SGPT 46 U/L (7-56); AST/SGOT 31 U/L (15-39); BILIRUBIN,TOTAL 0.5 mg/dL (0.2-1.3); BLOOD UREA NITROGEN 20 mg/dL (7-21); CALCIUM 10.6 mg/dL (8.4-10.5); CARBON DIOXIDE 32 mmol/L (21-33); CHLORIDE 92 mmol/L (95-110); GFR AFRICAN-AMERICAN > 60; GLUCOSE,RANDOM 275 mg/dL (70-110); POTASSIUM 4.9 mmol/L (3.6-5.0); SODIUM 134 mmol/L (132-148); TOTAL PROTEIN 7.4 g/dL (5.8-8.3)
--- NOTE | 2016-09-22 08:23 | PN ---
DATE: 09/22/2016 SUBJECTIVE: The patient appears comfortable at rest. She is not short of breath. PHYSICAL EXAMINATION: VITAL SIGNS: Temperature is 98.8, pulse 50, respirations 18, blood pressure 120 /51. Oxygen saturation on room air is 96%. HEENT: Normocephalic, atraumatic. No JVD. CARDIOVASCULAR: Positive S1, S2. No S3. LUNGS: Improved breath sounds at the bases. Very minimal/less rhonchi. No wheezing. EXTREMITIES: Positive for mild edema. No cyanosis, no clubbing. Calves are nontender to palpation. GASTROINTESTINAL: Abdomen is soft, nontender, nondistended. Bowel sounds are positive. SKIN: No acute rash. NEUROLOGIC: Limited at the present time. IMPRESSION: 1. Acute bronchitis. 2. Mild bronchospasm. 3. Sepsis syndrome. 4. Urinary tract infection. PLAN: The patient appears very comfortable this morning. She is not short of breath at rest. She states she is feeling much better overall. On physical exam, only minimal bronchospasm is noted. In addition, the oxygen saturation is now 96% on room air. I will continue with the current nebulizer treatments and low-dose oral steroids for now. The patient also remains on antibiotic therapy -- as per infectious disease. Temperatures have resolved. The patient also had a repeat chest x-ray done yesterday. No active disease is noted. Clinical status of the patient is significantly improved -- compared to the initial presentation. She is advised to increase her activity as tolerated. I will discuss the above with Dr. Downing. Jermain Kirby MD cc: [phone] TT: 09/22/2016 08:23:03 Confirmation # [id number] Dictation # [id number] jn SANGITA
--- NOTE | 2016-09-22 08:33 | PN ---
DATE: 09/22/2016 SUBJECTIVE: The patient is seen and examined at bedside on TCU. No acute events overnight. She rem ains afebrile and hemodynamically stable. This morning, the patient states she feels okay except for some cough. which is intermittently productive of clear to yellow sputum, but otherwise denies dyspn ea or chest pain, fevers, chills, or rigors. Overall, she states she feels improved since admission and is looking forward to going home. OBJECTIVE: VITAL SIGNS: Temperature 98.8, pulse 70, blood pressure 120/51, respiratory rate 18, oxygen saturati on 96% on room air. GENERAL: Morbidly obese woman sitting up in her chair in no apparent distress. HEENT: PERRL. EOMI. No scleral icterus, no conjunctival pallor. NECK: No JVD, no bruits. LUNGS: Decreased breath sounds at the bases. CARDIOVASCULAR: Regular rate and rhythm, normal S1 and S2. ABDOMEN: Normoactive bowel sounds, soft, nontender, nondistended. EXTREMITIES: Trace lower extremity edema bilaterally. NEUROLOGIC: Awake, alert, and oriented x 3. No focal motor deficits. LABORATORY DATA: WBC 13 with 67% neutrophils, hemoglobin 14, hematocrit 44, platelets 417. Sodium 1 34, potassium 4.9, chloride 92, bicarb 32, BUN 20, creatinine 0.7, glucose 275. IMAGING STUDIES: Chest x-ray demonstrates no acute pathology. ASSESSMENT: The patient is a 60-year-old woman with multiple medical comorbidities who presents to [facility] for evaluation of a 3-week history of malaise and who was admitted initially to the telemetry negrete for management of UTI with sepsis, and subsequently, transferred to the TCU for c ontinued IV antibiotics. PLAN: 1. Urinary tract infection with sepsis, resolving. Input from Dr. Oakley and Dr. Mendoza of infec tious disease noted and appreciated. The patient remains on ceftriaxone 1 gram IV daily and is sched uled to complete 10-14 day course. Today is day #8 of antibiotics. 2. Insulin-dependent diabetes mellitus with diabetic neuropathy. Fingersticks slightly improved. C ontinue with Levemir 50 units subcutaneously q. 12 and Humalog 20 units subcutaneously q. a.c. Contin ue to monitor fingersticks q. a.c. and at bedtime. Continue with medium dose insulin sliding scale f or coverage. 3. Hypertension. Blood pressure controlled. Continue with losartan 100 mg p.o. daily. 4. Hyperlipidemia. Continue with Zetia 10 mg p.o. daily. 5. Hypothyroidism. Continue with Synthroid 75 mcg p.o. daily. 6. Questionable right lower lobe pneumonia. Repeat chest x-ray demonstrates resolution of prior pat arodlo infiltrate noted on admission chest x-ray. Continue with bronchodilators as needed. Input from Dr. Kirby of pulmonary and critical care medicine noted. 7. 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 Input from Dr. Doug murphy noted and appreciated. Continue with CellCept 250 mg p.o. b.i.d., tacrolimus 1 mg p.o. b.i. d., prednisone 5 mg p.o. daily, and Bactrim 1 tab p.o. Tuesday, Tuesday, and Tuesday. 8. Chronic diarrhea, resolved. 9. Prophylaxis. Continue with Protonix for gastrointestinal prophylaxis and heparin for DVT prophyl axis. CODE STATUS: Full code. Dane Downing MD cc: [phone] TT: 09/22/2016 08:32:10 Confirmation # [id number] Dictation # [id number] jn
[2016-09-22] MEDS: Tmp-Smz 800 mg-160 mg DS Tab PO SCH (10:00)
[2016-09-22] MEDS: Magnesium Oxide 400 mg Tab UD PO SCH ×2 (11:00→17:55)
[2016-09-22] MEDS: Insulin Detemir 100 units/ml Vial (Levemir) SC SCH ×2 (11:00→21:41)
--- NOTE | 2016-09-22 16:33 | CP.PCM.PN ---
Subjective - Date & Time of Evaluation Date of Evaluation: 09/22/16 Time of Evaluation: 11:45 - Subjective Subjective: Patient is afebrile, no diarrhea, generalized weakness is less. Objective - Vital Signs/Intake and Output Vital Signs (last 24 hours): Temp Pulse Resp BP Pulse Ox 98.8 F 50 L 18 120/51 L 96 09/22/16 06:00 09/22/16 06:00 09/22/16 06:00 09/22/16 06:00 09/22/16 06:00 - Medications Medications: Current Medications Acetaminophen (Tylenol 325mg Tab) 650 mg PO Q4H PRN PRN Reason: Fever >100.4 F Last Admin: 09/21/16 10:14 Dose: 650 mg Albuterol/Ipratropium (Duoneb 3 Mg/0.5 Mg (3 Ml) Ud) 3 ml IH Q2H PRN PRN Reason: Shortness of Breath Albuterol/Ipratropium (Duoneb 3 Mg/0.5 Mg (3 Ml) Ud) 3 ml IH [id number] [facility] Last Admin: 09/22/16 08:44 Dose: 3 ml Cinacalcet (Sensipar) 30 mg PO DAILY [facility] Last Admin: 09/21/16 10:31 Dose: 30 mg Ezetimibe (Zetia) 10 mg PO DAILY [facility] Last Admin: 09/21/16 10:22 Dose: 10 mg Furosemide (Lasix) 20 mg IVP Q12 [facility] Last Admin: 09/21/16 21:38 Dose: 20 mg Guaifenesin/Codeine Phosphate (Robitussin W/Codeine) 5 ml PO Q4H PRN PRN Reason: Cough and congestion Heparin Sodium (Porcine) (Heparin) 5,000 units SC Q8 [facility] PRN Reason: Protocol Last Admin: 09/22/16 05:40 Dose: 5,000 units Ceftriaxone Sodium (Rocephin 1 Gram Ivpb) 100 mls @ 100 mls/hr IVPB 0600 [facility] PRN Reason: Protocol Stop: 09/25/16 06:01 Last Admin: 09/22/16 05:42 Dose: 100 mls/hr Insulin Detemir (Levemir) 50 unit SC Q12 [facility] Last Admin: 09/21/16 21:46 Dose: 50 unit Insulin Human Lispro (Humalog) 20 units SC AC [facility] Last Admin: 09/22/16 06:52 Dose: 20 units Insulin Human Regular (Humulin R Med) 0 units SC ACHS [facility] PRN Reason: Protocol Last Admin: 09/22/16 06:50 Dose: 5 units Levothyroxine Sodium (Synthroid) 75 mcg PO 0630 [facility] Last Admin: 09/22/16 05:40 Dose: 75 mcg Losartan Potassium (Cozaar) 100 mg PO DAILY [facility] Last Admin: 09/21/16 10:18 Dose: 100 mg Magnesium Oxide (Mag-Ox) 400 mg PO BID [facility] Last Admin: 09/21/16 17:48 Dose: 400 mg Mycophenolate Mofetil (Cellcept Cap) 250 mg PO BID [facility] Last Admin: 09/21/16 17:41 Dose: 250 mg Ondansetron HCl (Zofran Inj) 4 mg IVP Q4H PRN PRN Reason: Nausea/Vomiting Pantoprazole Sodium (Protonix Ec Tab) 40 mg PO 0630 [facility] Last Admin: 09/22/16 05:40 Dose: 40 mg Prednisone (Prednisone Tab) 5 mg PO DAILY [facility] Last Admin: 09/21/16 10:30 Dose: 5 mg Tacrolimus (Prograf Cap) 1 mg PO Q12 [facility] Last Admin: 09/21/16 21:36 Dose: 1 mg Trimethoprim/Sulfamethoxazole (Bactrim Ds Tab) 1 tab PO MWF [facility] PRN Reason: Protocol Zolpidem Tartrate (Ambien) 5 mg PO HS PRN; Protocol PRN Reason: Insomnia Last Admin: 09/20/16 22:48 Dose: 5 mg - Labs Labs: 09/22/16 06:30 09/22/16 05:00 - Constitutional Appears: Non-toxic, No Acute Distress - Head Exam Head Exam: NORMAL INSPECTION - Neck Exam Neck Exam: absent: Meningismus - Respiratory Exam Respiratory Exam: Decreased Breath Sounds - Cardiovascular Exam Cardiovascular Exam: +S1, +S2 - GI/Abdominal Exam GI & Abdominal Exam: Soft. absent: Tenderness Assessment and Plan - Assessment and Plan (Free Text) Plan: Assessment severe sepsis secondary to upper urinary tract infection in this patient S/P right renal transplant presenting with generalized weakness and syncopal episodes, clinically improving, growing E. coli resistant to Cipro and Bactrim, but sensitive to Rocephin Persistent leukocytosis probably secondary to systemic steroid use right kidney transplant (about 7 years ago) history of diverticulitis S/P partial colectomy morbid obesity with BMI 45 HTN DM dyslipidemia hypothyroidism Plan continue Rocephin (total day 8 of antibiotics) - would recommend 10-14 days of antibiotics continue to monitor WBC count Continue Bactrim prophylaxis since the patient is on chronic steroid use Will continue to follow clinically
[2016-09-22] MEDS: guaiFENesin-Codeine 100-10mg/5ml Syrup (5 ml) UD PO PRN ×2 (16:48→21:48)
[2016-09-23] MEDS: Albuterol-Ipratrop 3 mg / 0.5 (3 ml) UD IH SCH ×6 (00:31→20:43)
--- NOTE | 2016-09-23 01:58 | PN ---
DATE: 09/22/2016 SUBJECTIVE: The patient was seen in the transitional care unit. Her cough has improved since being started on diuretic therapy. She continues to look somewhat edematous, however. She denies any ches t pain, palpitations or headache. Of note, she stated that when she coughs she does experience episo ariel of urinary incontinence. OBJECTIVE: VITAL SIGNS: Blood pressure is 127/43, heart rate is 84, oral temperature is 98.2, respiratory rate is 18, oxygen saturation 98%. I's and O's are not strictly documented. The remainder of the exam is as follows. HEENT: The patient was normocephalic and atraumatic without any sinus tenderness. NECK: Supple with full range of motion. Trachea was midline and freely movable. Thyroid was nonten bright nor was it enlarged and I was unable to appreciate any jugular venous distension secondary to the patient's body habitus. Conjunctivae were neither pale nor were they icteric. CHEST: Lung sher are grossly clear to auscultation on my exam without any rales, rhonchi or wheezi ng. Diaphragmatic excursion in both lung sher was bilaterally symmetrical. CARDIAC: Had a regular rate and rhythm without any rubs or gallops. There were no heaves and the PM I was not displaced. ABDOMEN: Soft, centrally obese, but nontender, without any rebounding, guarding or rigidity. There was no hepatosplenomegaly. EXTREMITIES: Had 1-2+ dependent edema. NEUROLOGIC: She was nonfocal. VASCULAR: No bruits. GENITOURINARY: Did not reveal any tenderness over her renal allograft. LABORATORY STUDIES: White count is 13, H and H is 14.1/44.3 with a platelet count of 470,000. There are 68% neutrophils, 22% lymphocytes, 9% monocytes, 1% eosinophils. Sodium is 134, potassium 4.9, c hloride 92, bicarbonate 32, BUN/creatinine is 20/0.7 with a glucose of 275. Calcium has decreased 10 .6, AST/ALT is 31/46, total protein/albumin is 7.4/3.8. There is no microbiology data to report. est x-ray is negative. IMPRESSION AND PLAN: The patient is a 60-year-old obese female (BMI 48 kg/m2) with a known history o f type 2 diabetes mellitus that is insulin-dependent, hypertension, glomerulonephritis that has resul guerita in end-stage renal disease for which she is on hemodialysis until she received a living related r enal transplant from her son 7 years ago, history of diverticulitis with prior colonic resection, yaima or hospitalizations for transplant pyelonephritis, admitted with sepsis secondary to a genitourinary source with transplant pyelonephritis secondary to Escherichia coli, for which she continues to recei ve intravenous antibiotics. 1. Infectious disease followup is appreciated and the patient is currently on ceftriaxone with today being day #8 of recommended 10-14 days. She is also noted to be on Bactrim as prophylaxis against P neumocystis jirovecii pneumonia. Since she is a transplant patient, is also concurrently on tacrolim us, CellCept and prednisone. 2. The patient was recently diagnosed with primary hyperparathyroidism and her calcium increased to as high as 11.4 after being started on Sensipar 30 mg orally daily. Her calcium level has decreased, treatment of primary hyperparathyroidism is actually Sensipar 30 mg orally twice daily. Since the p atient is tolerating 30 mg orally daily I will increase to 30 mg orally daily while she is hospitaliz ed to see how she does. 3. The patient continues to remain edematous from having received intravenous fluids while she had s evere sepsis and I believe that this is contributing to her cough. For now, we will continue her on furosemide 20 mg intravenously twice daily since she states that she is in fact urinating frequently. She is having difficulty measuring her ins and outs and so we will order daily weights instead. 4. Pulmonary followup is also appreciated and the patient has only minimal bronchospasm at present, she does remain on DuoNeb. 5. The patient was encouraged to ambulate as well to decrease her risk of deep venous thromboses. I n the meantime, however, she does remain on heparin 5000 units subcutaneously every 8 hours. 6. Since the patient is in the hospital and on steroid (prednisone), we will continue pantoprazole f or gastrointestinal prophylaxis. The above was discussed with the patient as well as her brother at bedside. Review of systems, past medical history, social history and family history were all reviewed and ther e were no changes. Doron Casas MD cc: [phone] TT: 09/23/2016 01:57:33 Confirmation # [id number] Dictation # [id number] tn
[2016-09-23] MEDS: guaiFENesin-Codeine 100-10mg/5ml Syrup (5 ml) UD PO PRN ×4 (02:00→21:52)
[2016-09-23] MEDS: Pantoprazole 40 mg EC Tab PO SCH (06:24)
[2016-09-23] MEDS: cefTRIAXone 1 gm 100 ML IVPB SCH (06:25)
[2016-09-23] MEDS: Levothyroxine 75 MCG TAB PO SCH (06:26)
[2016-09-23] MEDS: Insulin Lispro 1 UNITS/0.01 ML SC SCH ×3 (06:55→17:48)
[2016-09-23] MEDS: Insulin Reg-MEDIUM-Coverage SC SCH ×4 (06:57→22:35)
[2016-09-23 07:21] LABS: ADD MANUAL DIFF? NO; BASO # 0.08 K/mm3 (0.0-2.0); BASO % 0.5 % (0.0-3.0); EOS # 0.2 (0.0-0.7); EOS % 1.3 % (1.5-5.0); GRAN # 10.59 (1.4-6.5); GRAN % 72.5 % (50.0-68.0); HEMATOCRIT 43.8 % (36.0-48.0); LYMPH # 2.6 (1.2-3.4); LYMPH % 17.7 % (22.0-35.0); MEAN CELL VOLUME 90.7 fL (80.0-105.0); MEAN PLATELET VOLUME 10.8 fl (7.0-11.0); MONO # 1.2 (0.1-0.6); PLATELET COUNT 385 10^3/uL (120.0-450.0); RED CELL DISTRIBUTION WIDTH 14.3 % (11.5-14.5); WHITE BLOOD COUNT 14.6 10^3/ul (4.5-11.0)
[2016-09-23 07:39] LABS: ALB/GLOB RATIO 1.1 (1.1-1.8); ALKALINE PHOSPHATASE 125 U/L (38-133); ALT/SGPT 41 U/L (7-56); AST/SGOT 30 U/L (15-39); BILIRUBIN,TOTAL 0.6 mg/dL (0.2-1.3); BLOOD UREA NITROGEN 27 mg/dL (7-21); CALCIUM 10.5 mg/dL (8.4-10.5); CARBON DIOXIDE 33 mmol/L (21-33); CHLORIDE 93 mmol/L (95-110); GFR AFRICAN-AMERICAN > 60; GLUCOSE,RANDOM 201 mg/dL (70-110); POTASSIUM 4.6 mmol/L (3.6-5.0); SODIUM 135 mmol/L (132-148); TOTAL PROTEIN 7.4 g/dL (5.8-8.3)
--- NOTE | 2016-09-23 08:27 | PN ---
DATE: 09/23/2016 SUBJECTIVE: The patient appears comfortable this morning. She is not short of breath at rest. PHYSICAL EXAMINATION: VITAL SIGNS: Temperature is 98.2, pulse 84, respirations 18, blood pressure 127 /43. Oxygen saturation on room air is 98%. HEENT: Normocephalic, atraumatic. No JVD. CARDIOVASCULAR: Positive S1, S2. No S3. LUNGS: Very minimal/less rhonchi. No wheezing. EXTREMITIES: Positive for mild edema. No cyanosis, no clubbing. Calves are nontender to palpation. GASTROINTESTINAL: Abdomen is soft, nontender, nondistended. Bowel sounds are positive. SKIN: No acute rash. NEUROLOGIC: Limited at the present time. IMPRESSION: 1. Acute bronchitis. 2. Mild bronchospasm. 3. Sepsis syndrome 4. Urinary tract infection. PLAN: The patient appears very comfortable this morning. She is not short of breath at rest. She does complain of some mild right ear pain. She does state to feeling much better overall. On physical exam, her bronchospasm continues to resolve. In addition, the alveolar arterial gradient also continues to resolve. Oxygen saturation on room air is now 98%. I will continue with the current nebulizer treatments and low-dose oral steroids for now. The patient remains on antibiotic therapy - as per infectious disease. There are no temperatures noted. Repeat a.m. labs are pending. Clinical status of the patient is significantly improved overall. I will discuss the above with Dr. Downing. Jermain Kirby MD cc: [id number] TT: 09/23/2016 08:27:03 Confirmation # [id number] Dictation # [id number] QUESADA
--- NOTE | 2016-09-23 09:07 | PN ---
DATE: 09/23/2016 SUBJECTIVE: The patient seen and examined at bedside in the TCU. No acute events overnight. She re naga afebrile and hemodynamically stable. The patient is tolerating her IV antibiotics without issu e, and this morning she states she feels okay overall and offers no complaints. OBJECTIVE: VITAL SIGNS: Temperature 98.2, pulse 84, blood pressure 127/63, respiratory rate 20, oxygen saturati on 98% on 2 liters nasal cannula. GENERAL: Morbidly obese woman sitting up in a chair, in no apparent distress. HEENT: PERRL. EOMI. No scleral icterus. No conjunctival pallor. NECK: No JVD, no bruits. LUNGS: Decreased breath sounds at the bases. CARDIOVASCULAR: Regular rate and rhythm, normal S1, S2. ABDOMEN: Normoactive bowel sounds, soft, nontender, nondistended. EXTREMITIES: Trace lower extremity edema bilaterally. NEUROLOGIC: Awake, alert and oriented x 3. No focal motor deficits. LABORATORY DATA: WBC 14.6 with 73% neutrophils, hemoglobin 14, hematocrit 44, platelets 385, sodium 135, potassium 4.6, chloride 93, bicarbonate 33, BUN 27, creatinine 0.8, glucose of 201. ASSESSMENT: The patient is a 60-year-old woman with multiple medical comorbidities who presents to [facility] for evaluation of a 3-week history of malaise and who was initially admitted to the telemetry negrete for management of UTI with sepsis and subsequently transferred to transitional ca re unit for continued IV antibiotics. PLAN: 1. Urinary tract infection with sepsis, resolving. Input from Dr. Oakley and Dr. Mendoza of infec tious disease noted and appreciated. The patient remains on ceftriaxone 1 gram IV daily and schedule d to complete a 10-14 day course. Today is day #9 of antibiotics. 2. Insulin-dependent diabetes mellitus with diabetic neuropathy. Fingersticks slightly improved. C ontinue with Levemir 50 units SC q. 12 hours and Humalog 20 units SC q.a.c. Continue with medium dos e insulin sliding scale and monitoring fingersticks q.a.c. and at bedtime. 3. Hypertension. Blood pressure controlled. Continue with losartan 100 mg p.o. daily. 4. Hyperlipidemia. Continue with Zetia 10 mg p.o. daily. 5. Hypothyroidism. Continue with Synthroid 75 mcg p.o. daily. 6. Questionable right lower lobe pneumonia, resolved. Repeat chest x-ray demonstrates resolution of patchy infiltrate noted on the admission chest x-ray. Input from Dr. Kirby of pulmonary and [facility] medicine noted and appreciated. 7. 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 Input from Dr. Asim burr is noted and appreciated. Continue with CellCept 250 mg p.o. b.i.d., tacrolimus 1 mg p.o. b.i. d., prednisone 5 mg p.o. daily and Bactrim 1 tab p.o. Tuesday, Tuesday, and Tuesday. 8. Prophylaxis. Continue Protonix for gastrointestinal prophylaxis and heparin for deep venous thro mbosis prophylaxis. CODE STATUS: Full code. Dane Downing MD cc: [id number] TT: 09/23/2016 09:06:53 Confirmation # [id number] Dictation # [id number] mn
[2016-09-23] MEDS: Insulin Detemir 100 units/ml Vial (Levemir) SC SCH ×2 (11:13→22:36)
[2016-09-23] MEDS: Magnesium Oxide 400 mg Tab UD PO SCH ×2 (11:13→17:48)
--- NOTE | 2016-09-23 17:27 | CP.PCM.PN ---
Subjective - Date & Time of Evaluation Date of Evaluation: 09/23/16 Time of Evaluation: 10:40 - Subjective Subjective: Complaining of mild cough but no sputum. No fevers. Objective - Vital Signs/Intake and Output Vital Signs (last 24 hours): Temp Pulse Resp BP Pulse Ox 98.2 F 84 18 127/43 L 98 09/22/16 16:00 09/22/16 16:00 09/22/16 16:00 09/22/16 22:00 09/22/16 16:00 - Medications Medications: Current Medications Acetaminophen (Tylenol 325mg Tab) 650 mg PO Q4H PRN PRN Reason: Fever >100.4 F Last Admin: 09/23/16 03:15 Dose: 650 mg Albuterol/Ipratropium (Duoneb 3 Mg/0.5 Mg (3 Ml) Ud) 3 ml IH Q2H PRN PRN Reason: Shortness of Breath Albuterol/Ipratropium (Duoneb 3 Mg/0.5 Mg (3 Ml) Ud) 3 ml IH [id number] [facility] Last Admin: 09/23/16 07:17 Dose: 3 ml Cinacalcet (Sensipar) 30 mg PO 0800,1700 [facility] Ezetimibe (Zetia) 10 mg PO DAILY [facility] Last Admin: 09/22/16 10:00 Dose: 10 mg Furosemide (Lasix) 20 mg IVP Q12 [facility] Last Admin: 09/22/16 22:00 Dose: 20 mg Guaifenesin/Codeine Phosphate (Robitussin W/Codeine) 5 ml PO Q4H PRN PRN Reason: Cough and congestion Last Admin: 09/23/16 02:00 Dose: 5 ml Heparin Sodium (Porcine) (Heparin) 5,000 units SC Q8 [facility] PRN Reason: Protocol Last Admin: 09/23/16 06:22 Dose: 5,000 units Ceftriaxone Sodium (Rocephin 1 Gram Ivpb) 100 mls @ 100 mls/hr IVPB 0600 [facility] PRN Reason: Protocol Stop: 09/25/16 06:01 Last Admin: 09/23/16 06:25 Dose: 100 mls/hr Insulin Detemir (Levemir) 50 unit SC Q12 [facility] Last Admin: 09/22/16 21:41 Dose: 50 unit Insulin Human Lispro (Humalog) 20 units SC AC [facility] Last Admin: 09/23/16 06:55 Dose: 20 units Insulin Human Regular (Humulin R Med) 0 units SC ACHS [facility] PRN Reason: Protocol Last Admin: 09/23/16 06:57 Dose: 5 units Levothyroxine Sodium (Synthroid) 75 mcg PO 0630 [facility] Last Admin: 09/23/16 06:26 Dose: 75 mcg Losartan Potassium (Cozaar) 100 mg PO DAILY [facility] Last Admin: 09/22/16 10:00 Dose: Not Given Magnesium Oxide (Mag-Ox) 400 mg PO BID [facility] Last Admin: 09/22/16 17:55 Dose: 400 mg Mycophenolate Mofetil (Cellcept Cap) 250 mg PO BID [facility] Last Admin: 09/22/16 17:55 Dose: 250 mg Ondansetron HCl (Zofran Inj) 4 mg IVP Q4H PRN PRN Reason: Nausea/Vomiting Pantoprazole Sodium (Protonix Ec Tab) 40 mg PO 0630 [facility] Last Admin: 09/23/16 06:24 Dose: 40 mg Prednisone (Prednisone Tab) 5 mg PO 0800 [facility] Tacrolimus (Prograf Cap) 1 mg PO Q12 [facility] Last Admin: 09/22/16 21:43 Dose: 1 mg Trimethoprim/Sulfamethoxazole (Bactrim Ds Tab) 1 tab PO MWF [facility] PRN Reason: Protocol Last Admin: 09/22/16 10:00 Dose: 1 tab Zolpidem Tartrate (Ambien) 5 mg PO HS PRN; Protocol PRN Reason: Insomnia Last Admin: 09/22/16 21:37 Dose: 5 mg - Labs Labs: 09/23/16 05:00 09/23/16 06:30 - Constitutional Appears: Non-toxic, No Acute Distress - Head Exam Head Exam: NORMAL INSPECTION - ENT Exam ENT Exam: Mucous Membranes Moist - Neck Exam Neck Exam: absent: Lymphadenopathy, Meningismus - Respiratory Exam Respiratory Exam: Decreased Breath Sounds - Cardiovascular Exam Cardiovascular Exam: +S1, +S2 - GI/Abdominal Exam GI & Abdominal Exam: Soft. absent: Tenderness Assessment and Plan - Assessment and Plan (Free Text) Plan: Assessment severe sepsis secondary to upper urinary tract infection in this patient S/P right renal transplant presenting with generalized weakness and syncopal episodes, clinically improving, growing E. coli resistant to Cipro and Bactrim, but sensitive to Rocephin Persistent leukocytosis probably secondary to systemic steroid use right kidney transplant (about 7 years ago) history of diverticulitis S/P partial colectomy morbid obesity with BMI 45 HTN DM dyslipidemia hypothyroidism Plan continue Rocephin (total day 9 of antibiotics) - would recommend 10-14 days of antibiotics continue to monitor WBC count Continue Bactrim prophylaxis since the patient is on chronic steroid use Cough syrup for the cough and will monitor clinically Will continue to follow clinically
[2016-09-24] MEDS: Albuterol-Ipratrop 3 mg / 0.5 (3 ml) UD IH SCH ×7 (00:10→23:10)
[2016-09-24] MEDS: guaiFENesin-Codeine 100-10mg/5ml Syrup (5 ml) UD PO PRN ×3 (06:10→20:05)
[2016-09-24] MEDS: cefTRIAXone 1 gm 100 ML IVPB SCH (06:10)
[2016-09-24] MEDS: Levothyroxine 75 MCG TAB PO SCH (06:11)
[2016-09-24] MEDS: Pantoprazole 40 mg EC Tab PO SCH (06:12)
[2016-09-24] MEDS: Insulin Reg-MEDIUM-Coverage SC SCH ×4 (06:41→22:29)
[2016-09-24] MEDS: Insulin Lispro 1 UNITS/0.01 ML SC SCH ×3 (06:44→18:26)
[2016-09-24 06:55] LABS: ADD MANUAL DIFF? NO
[2016-09-24 07:15] LABS: BASO # 0.08 K/mm3 (0.0-2.0); BASO % 0.5 % (0.0-3.0); EOS # 0.2 (0.0-0.7); EOS % 1.5 % (1.5-5.0); GRAN # 10.45 (1.4-6.5); GRAN % 71.6 % (50.0-68.0); HEMATOCRIT 44.9 % (36.0-48.0); LYMPH # 2.7 (1.2-3.4); LYMPH % 18.3 % (22.0-35.0); MEAN CELL VOLUME 90.9 fL (80.0-105.0); MEAN CORPUSCULAR HEMOGLOBIN 28.9 pg (25.0-35.0); MEAN CORPUSCULAR HGB CONC 31.8 g/dl (31.0-37.0); MEAN PLATELET VOLUME 10.8 fl (7.0-11.0); MONO # 1.2 (0.1-0.6); MONO % 8.1 % (1.0-6.0); PLATELET COUNT 367 10^3/uL (120.0-450.0); RED CELL DISTRIBUTION WIDTH 14.4 % (11.5-14.5); WHITE BLOOD COUNT 14.6 10^3/ul (4.5-11.0)
--- NOTE | 2016-09-24 09:13 | PN ---
DATE: 09/24/2016 SUBJECTIVE: The patient appears comfortable this morning. She is not short of breath at rest. PHYSICAL EXAMINATION: VITAL SIGNS: Temperature is 98.2, pulse 76, respirations 18, blood pressure 114 /61. Oxygen saturation on room air is 98%. HEENT: Normocephalic, atraumatic. No JVD. CARDIOVASCULAR: Positive S1, S2. No S3. LUNGS: Very minimal/less rhonchi. No wheezing. EXTREMITIES: Positive for mild edema. No cyanosis, no clubbing. Calves are nontender to palpation. GASTROINTESTINAL: Abdomen is soft, nontender, nondistended. Bowel sounds are positive. SKIN: No acute rash. NEUROLOGIC: Limited at the present time. IMPRESSION: 1. Acute bronchitis. 2. Mild bronchospasm. 3. Sepsis syndrome. 4. Urinary tract infection. PLAN: The patient appears very comfortable this morning. She is not short of breath at rest. She has no ear complaints this morning. She states she is feeling much, much better overall. On physical exam, her bronchospasm continues to resolve. In addition, the oxygen saturation on room air is now 98% . I will continue with the current nebulizer treatments and low-dose oral steroids for now. The patient remains on antibiotic therapy -- as per infectious disease. Input by Dr. Oakley is noted. Clinical status of the patient is significantly improved. She is advised to increase her activity as tolerated. I will discuss the above with Dr. Downing. Jermain Kirby MD cc: [phone] TT: 09/24/2016 09:12:02 Confirmation # [id number] Dictation # [id number] en MTDD
[2016-09-24] MEDS: Tmp-Smz 800 mg-160 mg DS Tab PO SCH (10:38)
[2016-09-24] MEDS: Insulin Detemir 100 units/ml Vial (Levemir) SC SCH ×2 (10:40→22:29)
[2016-09-24] MEDS: Magnesium Oxide 400 mg Tab UD PO SCH ×2 (10:40→18:24)
[2016-09-24 10:56] VITALS: O2SAT 96
--- NOTE | 2016-09-24 19:18 | CP.PCM.PN ---
Subjective - Date & Time of Evaluation Date of Evaluation: 09/24/16 Time of Evaluation: 10:45 - Subjective Subjective: Comfortable in bed, not in distress, less cough, no dysuria, no fevers. Objective - Vital Signs/Intake and Output Vital Signs (last 24 hours): Temp Pulse Resp BP Pulse Ox 98.2 F 76 20 114/61 98 09/23/16 16:00 09/23/16 16:00 09/23/16 16:00 09/23/16 22:20 09/23/16 16:00 - Medications Medications: Current Medications Acetaminophen (Tylenol 325mg Tab) 650 mg PO Q4H PRN PRN Reason: Fever >100.4 F Last Admin: 09/23/16 21:55 Dose: 650 mg Albuterol/Ipratropium (Duoneb 3 Mg/0.5 Mg (3 Ml) Ud) 3 ml IH Q2H PRN PRN Reason: Shortness of Breath Albuterol/Ipratropium (Duoneb 3 Mg/0.5 Mg (3 Ml) Ud) 3 ml IH [id number] [facility] Last Admin: 09/24/16 07:29 Dose: 3 ml Cinacalcet (Sensipar) 30 mg PO 0800,1700 [facility] Last Admin: 09/24/16 08:35 Dose: 30 mg Ezetimibe (Zetia) 10 mg PO DAILY [facility] Last Admin: 09/23/16 11:14 Dose: 10 mg Furosemide (Lasix) 20 mg IVP Q12 [facility] Last Admin: 09/23/16 22:20 Dose: 20 mg Guaifenesin/Codeine Phosphate (Robitussin W/Codeine) 5 ml PO Q4H PRN PRN Reason: Cough and congestion Last Admin: 09/24/16 06:10 Dose: 5 ml Heparin Sodium (Porcine) (Heparin) 5,000 units SC Q8 [facility] PRN Reason: Protocol Last Admin: 09/24/16 06:08 Dose: 5,000 units Ceftriaxone Sodium (Rocephin 1 Gram Ivpb) 100 mls @ 100 mls/hr IVPB 0600 [facility] PRN Reason: Protocol Stop: 09/25/16 06:01 Last Admin: 09/24/16 06:10 Dose: 100 mls/hr Insulin Detemir (Levemir) 50 unit SC Q12 [facility] Last Admin: 09/23/16 22:36 Dose: 50 unit Insulin Human Lispro (Humalog) 20 units SC AC [facility] Last Admin: 09/24/16 06:44 Dose: 20 units Insulin Human Regular (Humulin R Med) 0 units SC ACHS [facility] PRN Reason: Protocol Last Admin: 09/24/16 06:41 Dose: Not Given Levothyroxine Sodium (Synthroid) 75 mcg PO 0630 [facility] Last Admin: 09/24/16 06:11 Dose: 75 mcg Losartan Potassium (Cozaar) 100 mg PO DAILY [facility] Last Admin: 09/23/16 11:15 Dose: 100 mg Magnesium Oxide (Mag-Ox) 400 mg PO BID [facility] Last Admin: 09/23/16 17:48 Dose: 400 mg Mycophenolate Mofetil (Cellcept Cap) 250 mg PO BID [facility] Last Admin: 09/23/16 18:19 Dose: 250 mg Ondansetron HCl (Zofran Inj) 4 mg IVP Q4H PRN PRN Reason: Nausea/Vomiting Pantoprazole Sodium (Protonix Ec Tab) 40 mg PO 0630 [facility] Last Admin: 09/24/16 06:12 Dose: 40 mg Prednisone (Prednisone Tab) 5 mg PO 0800 [facility] Last Admin: 09/24/16 08:35 Dose: 5 mg Tacrolimus (Prograf Cap) 1 mg PO Q12 [facility] Last Admin: 09/23/16 21:52 Dose: 1 mg Trimethoprim/Sulfamethoxazole (Bactrim Ds Tab) 1 tab PO MWF [facility] PRN Reason: Protocol Last Admin: 09/22/16 10:00 Dose: 1 tab Zolpidem Tartrate (Ambien) 5 mg PO HS PRN; Protocol PRN Reason: Insomnia Last Admin: 09/23/16 21:49 Dose: 5 mg - Labs Labs: 09/24/16 06:30 09/23/16 06:30 - Constitutional Appears: Non-toxic, No Acute Distress - Head Exam Head Exam: NORMAL INSPECTION - ENT Exam ENT Exam: Mucous Membranes Moist - Neck Exam Neck Exam: absent: Lymphadenopathy, Meningismus - Respiratory Exam Respiratory Exam: Decreased Breath Sounds - Cardiovascular Exam Cardiovascular Exam: +S1, +S2 - GI/Abdominal Exam GI & Abdominal Exam: Soft. absent: Tenderness Assessment and Plan - Assessment and Plan (Free Text) Plan: Assessment severe sepsis secondary to upper urinary tract infection in this patient S/P right renal transplant presenting with generalized weakness and syncopal episodes, clinically improving, growing E. coli Persistent leukocytosis probably secondary to systemic steroid use right kidney transplant (about 7 years ago) history of diverticulitis S/P partial colectomy morbid obesity with BMI 45 HTN DM dyslipidemia hypothyroidism Plan continue Rocephin (day 10 of antibiotics) - would recommend 10-14 days of antibiotics - will consider d/c of antibiotics in the next 24 hours continue to monitor WBC count Continue Bactrim prophylaxis since the patient is on chronic steroid use Will continue to follow clinically
--- NOTE | 2016-09-24 21:43 | PN ---
DATE: 09/24/2016 The patient is a 60-year-old white female in TCU room 304, bed 1. The patient is in the TCU for intr avenous antibiotics since she had been in the acute care facility and has a urinary tract infection w hich is resistant to oral medication. Of note, the patient has had a renal transplant. She denies a ny symptoms. There have been no acute events overnight. PHYSICAL EXAMINATION: VITAL SIGNS: Temperature of 98, pulse rate of 76, blood pressure 135/73, respiratory rate of 20, wit h an O2 saturation of 98. HENT: Unremarkable. NECK: Supple, with no adenopathy or bruits. LUNGS: Clear bilaterally. HEART: Regular rate and rhythm. ABDOMEN: Benign. NEUROLOGICALLY: The patient is intact. WBCs are 14.6, with granulocyte percentage is 71.6 which is coming downwards. Chemistry is essential ly normal. Glucose is 138. Today is day #10 on intravenous antibiotics. The patient most likely will be discharged tomorrow. DIAGNOSES CURRENTLY: 1. Urinary tract infection. 2. Urosepsis. 3. Hyperglycemia. 4. Diabetes. Varghese Downing MD cc: [id number] TT: 09/24/2016 21:43:05 Confirmation # [id number] Dictation # [id number] jn
[2016-09-25] MEDS: Albuterol-Ipratrop 3 mg / 0.5 (3 ml) UD IH SCH ×3 (04:38→11:06)
[2016-09-25] MEDS: cefTRIAXone 1 gm 100 ML IVPB SCH (05:15)
[2016-09-25] MEDS: Insulin Lispro 1 UNITS/0.01 ML SC SCH (07:32)
[2016-09-25] MEDS: Insulin Reg-MEDIUM-Coverage SC SCH (07:33)
[2016-09-25] MEDS: Pantoprazole 40 mg EC Tab PO SCH (07:33)
[2016-09-25] MEDS: Levothyroxine 75 MCG TAB PO SCH (07:33)
--- NOTE | 2016-09-25 09:24 | PN ---
DATE: 09/25/2016 SUBJECTIVE: The patient is seen and examined at bedside on the TCU. No acute events overnight. She remains afebrile and hemodynamically stable. This morning, she states she feels well and is ready t o go home. OBJECTIVE: VITAL SIGNS: Temperature 98, pulse 89, blood pressure 135/61, respiratory rate 20, oxygen saturation 96% on room air. GENERAL: Morbidly obese woman sitting up in her chair in no apparent distress. HEENT: PERRL. EOMI. No scleral icterus. No conjunctival pallor. NECK: No JVD, no bruits. LUNGS: Decreased breath sounds in the bases. CARDIOVASCULAR: Regular rate and rhythm. Normal S1, S2. ABDOMEN: Normoactive bowel sounds, soft, nontender, nondistended. EXTREMITIES: Trace lower extremity edema bilaterally. NEUROLOGIC: Awake, alert, and oriented x 3. No focal motor deficits. LABORATORY DATA: Morning labs are pending. ASSESSMENT: The patient is a 60-year-old woman with multiple medical comorbidities who presents to [facility] for evaluation of a 3-week history of malaise, and who was initially admitted t o the telemetry negrete for management of urinary tract infection with sepsis, and subsequently, transfe rred to the transitional care unit for continued IV antibiotic therapy. PLAN: 1. UTI, resolved. Input from Dr. Oakley and Dr. Mendoza of infectious disease noted and appreciat ed, and the patient has completed an 11-day course of antibiotics consisting of ceftriaxone 1 gram IV daily. 2. Insulin-dependent diabetes mellitus with diabetic neuropathy. Continue with Levemir 50 units sub cutaneously q. 12 hours and Humalog 20 units subcutaneously q. a.c. Continue with medium-dose insul in sliding scale for coverage. 3. Hypertension. Blood pressure controlled. Continue with losartan 100 mg p.o. daily. 4. Hyperlipidemia. Continue with Zetia 10 mg p.o. daily. 5. Hypothyroidism. Continue with Synthroid 75 mcg p.o. daily. 6. Questionable right lower lobe pneumonia, resolved. Repeat chest x-ray demonstrated resolution of patchy infiltrate. Input from Dr. Kirby of pulmonary and critical care medicine also noted and a ppreciated. 7. 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 Input from Dr. Doug murphy is noted and appreciated. Continue with CellCept 250 mg p.o. b.i.d., tacrolimus 1 mg p.o. b .i.d., prednisone 5 mg p.o. daily, and Bactrim 1 tab p.o. Tuesday, Tuesday, and Tuesday. 8. Prophylaxis. Continue with Protonix for GI prophylaxis and heparin for DVT prophylaxis. 9. Disposition: The patient for discharge to home today. CODE STATUS: Full code. Dane Downing MD cc: [id number] TT: 09/25/2016 09:23:43 Confirmation # [id number] Dictation # [id number] jn
[2016-09-25 10:40] VITALS: BP 145/48; PULSE 76; RESP 20; TEMP 98.7
--- NOTE | 2016-09-25 11:01 | PN ---
DATE: 09/25/2016 The patient is in bed in no acute distress, seen earlier today. PHYSICAL EXAMINATION: VITAL SIGNS: Temperature is 98, blood pressure is 107/40, respiratory rate of 18, heart rate of 89. HEENT: Unremarkable. NECK: Supple. LUNGS: Have decreased breath sounds. HEART: Normal S1, S2. ABDOMEN: Soft, nontender. ASSESSMENT AND PLAN: A 60-year-old female seen earlier this morning in room 304 with severe sepsis s econdary to urinary tract infection, status post right with renal transplant, presenting with general ized weakness and syncopal episodes improving and was growing Escherichia coli, persistent leukocytos is secondary to systemic steroids use, right kidney transplant approximately 7 years ago and day #11 of therapy. Case discussed with PMD who wants to discharge the patient. Nilson Mendoza MD cc: [id number] TT: 09/25/2016 11:01:15 Confirmation # [id number] Dictation # [id number] terrie
[2016-09-25] MEDS: Magnesium Oxide 400 mg Tab UD PO SCH (11:20)
[2016-09-25] MEDS: Insulin Detemir 100 units/ml Vial (Levemir) SC SCH (11:22)
--- NOTE | 2016-09-26 21:10 | DS ---
ADMITTING DIAGNOSIS: Urinary tract infection with sepsis secondary to Escherichia coli. DISCHARGE DIAGNOSIS: Urinary tract infection with sepsis secondary to Escherichia coli, resolved status post 10 day course of ceftriaxone. SECONDARY DIAGNOSES: Hypertension, hyperlipidemia, hypothyroidism, insulin- dependent diabetes mellitus with diabetic neuropathy, history of living renal transplant secondary to fibrillary glomerulonephritis. CONSULTATIONS: Dr. Mendoza (infectious disease), Dr. Casas (nephrology) . HISTORY OF PRESENT ILLNESS: The patient is a 60-year-old woman with past medical history of hypertension, hyperlipidemia, hypothyroidism, insulin- dependent diabetes mellitus with diabetic neuropathy, and a history of living donor renal transplant secondary to fibrillary glomerulonephritis, who presented to [facility] for evaluation of a 3 week history of diarrhea, fevers, chills and amylase and who was admitted to the telemetry negrete for management of sepsis secondary to E. coli UTI. Upon medical stabilization on the telemetry negrete, the patient was transferred to the TCU to complete a 10 day course of antibiotics as per Dr. Mendoza. HOSPITAL COURSE: Upon admission to the TCU, the patient was maintained on Ceftriaxone 1 gram IV daily. Her TCU stay was uneventful and the patient was noted to remain afebrile and hemodynamically stable during her entire TCU stay. The patient tolerated her IV antibiotics without difficulties and after completing a 10 day course of ceftriaxone 1 gram IV daily, the patient was deemed stable for discharge to home. CONDITION: Good, improved. DISPOSITION: To home. DISCHARGE MEDICATIONS: Zetia 10 mg p.o. daily, prednisone 5 mg p.o. daily, Synthroid 75 mcg p.o. daily, Protonix 40 mg p.o. daily, losartan 100 mg p.o. daily, Levemir 50 units SC q.12, Humalog 20 units SC before meals, CellCept 250 mg p.o. t.i.d., tacrolimus 1 mg p.o. b.i.d., Bactrim DS 1 tab p.o. Tuesday, Tuesday, Tuesday. DISCHARGE INSTRUCTIONS: The patient was advised that if she has any recurrence of her fevers, chills, rigors, or dysuria or any development of flank pain or vaginal discharge, to present to the nearest Emergency Department immediately. FOLLOWUP: The patient to follow up with her PMD within 1 week of discharge. The patient to follow up with Dr. Pritsiolas as scheduled. Dane Downing MD cc: [phone] TT: 09/26/2016 21:10:02 sn MTDD
== END 2016-09-25 12:32 | disposition home or self-care (01) | DRG 871 ==
LOC: TRCU 19:55
PROVIDERS: ADMIT Internal Medicine; ATTEND Internal Medicine
PROC: F07Z9ZZ Gait Training/Functional Ambulation Treatment (ICD-10-PCS; principal; 2016-09-18)
PROC: F07M6ZZ Therapeutic Exercise Treatment of Musculoskeletal System - Whole Body (ICD-10-PCS; 2016-09-18)
PROC: F08Z4ZZ Home Management Treatment (ICD-10-PCS; 2016-09-22)
DX: A41.51 Sepsis due to Escherichia coli [E. coli] (principal); J18.9 Pneumonia, unspecified organism; E11.40 Type 2 diabetes mellitus with diabetic neuropathy, unspecified; N39.0 Urinary tract infection, site not specified; Z68.42 Body mass index [BMI] 45.0-49.9, adult; Z94.0 Kidney transplant status; R32 Unspecified urinary incontinence; R65.20 Severe sepsis without septic shock; E03.9 Hypothyroidism, unspecified; E21.0 Primary hyperparathyroidism; E66.01 Morbid (severe) obesity due to excess calories; Z79.4 Long term (current) use of insulin; E78.5 Hyperlipidemia, unspecified; E87.70 Fluid overload, unspecified; I10 Essential (primary) hypertension; J20.9 Acute bronchitis, unspecified; N05.8 Unspecified nephritic syndrome with other morphologic changes; Z90.49 Acquired absence of other specified parts of digestive tract; Z90.710 Acquired absence of both cervix and uterus; E11.65 Type 2 diabetes mellitus with hyperglycemia